=== PATIENT | female | born 1960 | race Caucasian/White ===

== ENCOUNTER 2022-12-12 16:33 | Outpatient (CLI) | payer OTHER | END 2022-12-12 16:34 | disposition left against medical advice (07) | LOC: EMS 16:33 | DX: S80.211A Abrasion, right knee, initial encounter (principal); M79.644 Pain in right finger(s); W01.0XXA Fall on same level from slipping, tripping and stumbling without subsequent striking against object, initial encounter; Y92.000 Kitchen of unspecified non-institutional (private) residence as the place of occurrence of the external cause; Z79.02 Long term (current) use of antithrombotics/antiplatelets ==

== ENCOUNTER 2023-09-28 02:17 | Outpatient (CLI) | payer OTHER, MEDICARE | END 2023-09-28 02:18 | disposition short-term general hospital (02) | LOC: EMS 02:17 | DX: M25.511 Pain in right shoulder (principal); S61.412A Laceration without foreign body of left hand, initial encounter; M79.645 Pain in left finger(s); W01.0XXA Fall on same level from slipping, tripping and stumbling without subsequent striking against object, initial encounter; Y92.008 Other place in unspecified non-institutional (private) residence as the place of occurrence of the external cause | CPT/HCPCS: A0425; A0427 ==

== ENCOUNTER 2023-09-30 17:52 | Outpatient (CLI) | payer OTHER, MEDICARE | END 2023-09-30 23:49 | disposition EMS.NT | LOC: EMS 17:52 | DX: Z03.89 Encounter for observation for other suspected diseases and conditions ruled out (principal) ==

== ENCOUNTER 2023-10-02 05:45 | Outpatient (CLI) | payer OTHER, MEDICARE | END 2023-10-02 05:46 | disposition short-term general hospital (02) | LOC: EMS 05:45 | DX: R53.81 Other malaise (principal); R53.1 Weakness; R52 Pain, unspecified | CPT/HCPCS: A0425; A0429 ==

== ENCOUNTER 2024-01-24 12:52 | Outpatient (CLI) | payer OTHER, MEDICARE ==
[2024-01-24 17:51] LABS: BILIRUBIN,URINE NEGATIVE (NEGATIVE); GLUCOSE, URINE (UA) NEGATIVE (NEGATIVE); KETONES,URINE (UA) NEGATIVE (NEGATIVE); LEUKOCYTE ESTERASE, URINE SMALL (NEGATIVE); NITRITE,URINE NEGATIVE (NEGATIVE); OCCULT BLOOD,URINE NEGATIVE (NEGATIVE); PROTEIN,URINE NEGATIVE (NEGATIVE); UROBILINOGEN,URINE 0.2 (NORMAL) E.U./dL (NORMAL)
[2024-01-24 17:56] LABS: CLARITY,URINE HAZY (CLEAR)
[2024-01-24 18:04] LABS: BACTERIA,URINE Moderate /HPF (None Seen); RBC,URINE None Seen /HPF (0-5); SQUAMOUS EPITHELIAL CELL,UR FEW Squamous (<= Few); WBC,URINE >25 /HPF (0-5)
[2024-01-24 18:11] LABS: CALCIUM 10.2 mg/dL (8.5-10.3); CREATININE 1.2 mg/dL (0.6-1.3); POTASSIUM 4.5 mmol/L (3.5-4.5)
[2024-01-24 21:21] LABS: ESTIMATED AVERAGE GLUCOSE 171 mg/dL (70-100); HEMOGLOBIN A1c% 7.6 % (4.27-6.07)
== END 2024-01-24 12:53 | disposition home or self-care (01) ==
LOC: LAB.N 12:52
PROVIDERS: ATTEND Internal Medicine Cardiovascular Disease
DX: E11.65 Type 2 diabetes mellitus with hyperglycemia (principal); I10 Essential (primary) hypertension; Z79.4 Long term (current) use of insulin
CPT/HCPCS: 36415; 80048; 81001; 81003; 83036; 87086

== ENCOUNTER 2024-06-05 11:24 | Outpatient (CLI) | payer MEDICARE, OTHER | END 2024-06-05 11:25 | disposition short-term general hospital (02) | LOC: EMS 11:24 | DX: R06.00 Dyspnea, unspecified (principal); R06.2 Wheezing; R60.0 Localized edema; R09.89 Other specified symptoms and signs involving the circulatory and respiratory systems; R00.0 Tachycardia, unspecified; I44.7 Left bundle-branch block, unspecified | CPT/HCPCS: A0425; A0427; A0888 ==